=== PATIENT | female | born 1960 | race Two or more races ===

== ENCOUNTER 2025-10-01 11:52 | Inpatient (IN) | payer MEDICAID, OTHER ==
[~2025-10-01] VITALS: Ht 154.9 cm; Wt 64.5 kg
--- NOTE | 2025-10-01 12:07 | ECG ---
[facility] Test Date: 2025-10-01 Test Time: 12:05:25 Pat Name: UVALDO ESPAÑA Department: ER Room: Gender: F Mail Examiner: SOMMER : 1960 Requested By: BRANDIE LUNA Order Number: [id number] Reading MD: Measurements Intervals [place] Rate: 69 P: 67 AL: 153 QRS: 72 QRSD: 105 T: 62 QT: 420 QTc: 450 Interpretive Statements Sinus rhythm Consider left atrial enlargement Please click the below link to view image of tracing.
--- NOTE | 2025-10-01 12:38 | ED.PDOC ---
HPI Comments This is a 65 year old female presenting to the ED with chief complaint of chest pain. Patient reports that she has been experiencing left sided chest pressure since this morning with associated nausea. Patient relays that she has had similar pain in the past years ago. Patient denies any SOB, dizziness, vomiting, abdominal pain, or headache. Chief Complaint: Chest Pain Time Seen by MD: 12:33 Reviewed Notes: Nurses Notes, Medications, Allergies Allergies: Coded Allergies: NO KNOWN ALLERGIES (Unverified , 10/01/25) Information Source: Patient Mode of Arrival: Ambulatory Severity: Moderate Timing: Hours Duration: Since onset Prehospital treatment: None Location: Chest (L) Radiation: No Radiation Quality: Pressure Onset: At Rest Cardiac Risk Factors: Hyperlipidemia, HTN, Diabetes PE Risk Factors: None History of: Similar pain in past Past Medical History PAST MEDICAL HISTORY: DM, High Lipids, HTN Surgical History: Denies all surgeries TRIMMING OPERATOR History: No Pertinent TRIMMING OPERATOR History Family History Family History: Reviewed,noncontributory to illness Social History Smoker: Non-Smoker Alcohol: Denies ETOH Use Drugs: Denies Drug Use Lives In: Home Constitutional: denies: chills, diaphoresis, fatigue, fever, malaise, sweats, weakness, others EENTM: denies: blurred vision, double vision, ear bleeding, ear discharge, ear drainage, ear pain, ear ringing, eye pain, eye redness, hearing loss, mouth pain, mouth swelling, nasal discharge, nose bleeding, nose congestion, nose pain, photophobia, tearing, throat pain, throat swelling, voice changes, others Respiratory: denies: cough, hemoptysis, orthopnea, SOB at rest, shortness of breath, SOB with excertion, stridor, wheezing, others Cardiovascular: reports: chest pain; denies: dizzy spells, diaphoresis, Dyspnea on exertion, edema, irregular heart beat, left arm pain, lightheadedness, palpitations, PND, syncope, others Gastrointestinal: reports: nausea; denies: abdomen distended, abdominal pain, blood streaked bowels, constipated, diarrhea, dysphagia, difficulty swallowing, hematemesis, melena, poor appetite, poor fluid intake, rectal bleeding, rectal pain, vomiting, others Genitourinary: denies: abnormal vagina bleeding, burning, dyspareunia, dysuria, flank pain, frequency, hematuria, incontinence, pain, , vagina discharge, urgency, others Neurological: denies: dizziness, fainting, headache, left sided numbness, left sided weakness, numbness, paresthesia, pre-existing deficit, right sided numbness, right sided weakness, seizure, speech problems, tingling, tremors, weakness, others Musculoskeletal: denies: back pain, gout, joint pain, joint swelling, muscle pain, muscle stiffness, neck pain, others Integumetry: denies: bruises, change in color, change in hair/nails, dryness, laceration, lesions, lumps, rash, wounds, others Allergic/Immunocompromised: denies: Difficulty Healing, Frequent Infections, Hives, Itching, others Hematologic/Lymphatic: denies: anemia, blood clots, easy bleeding, easy bruising, swollen glands, others Endocrine: denies: excessive hunger, excessive sweating, excessive thirst, excessive urination, flushing, intolerance to cold, intolerance to heat, une xplained weight gain, unexplained weight loss, others Psychiatric: denies: anxiety, bipolar disorder, depression, hopeless, panic disorder, schizophrenia, sleepless, suicidal, others All Other Systems: Reviewed and Negative Physical Exam General Appearance: No Apparent Distress, Normal HEENT: Normal ENT Inspection, Pharynx Normal, TMs Normal Neck: Full Range of Motion, Non-Tender, Normal, Normal Inspection Respiratory: Chest Non-Tender, Lungs Clear, No Accessory Muscle Use, No Respiratory Distress, Normal Breath Sounds Cardiovascular: No Edema, No JVD, No Murmur, No Gallop, Normal Peripheral Pul ses, Regular Rate/Rhythm Breast Exam: Deferred Gastrointestinal: No Organomegaly, Non Tender, No Pulsatile Mass, Normal Bowel Sounds, Soft Genitalia: Deferred Pelvic: Deferred Rectal: Deferred Extremities: No calf tenderness, Normal capillary refill, Normal inspection, Normal range of motion, Non-tender, No pedal edema Musculoskeletal : Apperance: Normal Neurologic: Alert, manager metal II-XII nml as Tested, No Motor Deficits, Normal Affect, Normal Mood, No Sensory Deficits Cerebellar Function: Normal Reflexes: Normal Skin: Dry, Normal Color, Warm Lymphatic: No Adenopathy Was a procedure done? Was a procedure done?: No CP Differential Dx Differential Diagnosis: Electrolyte Disorder, Hypoxia, MAT, MN Differential Diagnosis: HTN Essential, HTN Accelerated Differential Diagnosis: Gastritis, Myocardial Infarction, Pericarditis X-Ray, Labs, Meds, VS Vital Signs Date Time Temp Pulse Resp B/P (MAP) Pulse Ox O2 Delivery O2 Flow Rate FiO2 10/01/25 12:05 69 10/01/25 12:00 98.1 81 18 132/72 98 98.1 Lab Test 10/01/25 14:17 10/01/25 12:29 Range/Units Troponin I High Sensitivity < 3 L < 3 L </=34 ng/L White Blood Count 7.0 4.4-10.8 10^3/uL Red Blood Count 4.60 4.0-5.20 10^6/uL Hemoglobin 9.5 L 12.2-16.2 g/dL Hematocrit 30.8 L 36.0-46.0 % Mean Corpuscular Volume 66.9 L 80.0-100.0 fL Mean Corpuscular Hemoglobin 20.7 L 28.0-32.0 pg Mean Corpuscular Hemoglobin Concent 31.0 L 32.0-36.0 g/dL Red Cell Distribution Width 17.2 H 11.8-14.3 % Platelet Count 235 140-450 10^3/uL Mean Platelet Volume 9.2 6.9-10.8 fL Neutrophils (%) (Auto) 77.0 37.0-80.0 % Lymphocytes (%) (Auto) 16.7 10.0-50.0 % Monocytes (%) (Auto) 5.7 0.0-12.0 % Eosinophils (%) (Auto) 0.1 0.0-7.0 % Basophils (%) (Auto) 0.5 0.0-2.0 % Neutrophils # (Auto) 5.4 1.6-8.6 10 ^3/uL Lymphocytes # (Auto) 1.2 0.4-5.4 10 ^3/uL Monocytes # (Auto) 0.4 0-1.3 10 ^3/uL Eosinophils # (Auto) 0 0-0.8 10 ^3/uL Basophils # (Auto) 0 0-0.2 10 ^3/uL Nucleated Red Blood Cells 0.0 % Platelet Estimate Adequate Hypochromasia (manual) Slight Microcytosis Moderate Sodium Level 142 136-145 mmol/L Potassium Level 4.4 3.5-5.1 mmol/L Chloride Level 105 98-107 mmol/L Carbon Dioxide Level 26 20-31 mmol/L Anion Gap 11 5-15 Blood Urea Nitrogen 14 9-23 mg/dL Creatinine 0.57 0.550-1.02 mg/dL Glomerular Filtration Rate Calc 101 >90 mL/min BUN/Creatinine Ratio 24.6 H 10.0-20.0 Serum Glucose 89 74-106 mg/dL Calcium Level 9.6 8.7-10.4 mg/dL Time of 1ST Reevaluation: 13:33 Reevaluation 1ST: Unchanged Patient Education/Counseling: Diagnosis, Treatment Family Education/Counseling: No Family Present SEPSIS Sepsis Screen Date sepsis recognized/suspect: Oct 01, 2025 Time Sepsis recognized/suspect: 1200 Recent Procedure: No On Antibiotic Therapy: No Respiratory Rate >20: No Heart Rate >90: No Temp<36 C (96.8 F) or >38.3 C: No SBP <90 or MAP <65 mmHG: No New Acute Mental Status Change: No Is the patient on CPAP, BIPAP,: No Physician Orders Troponin-I Hs (10/01/25 14:58) Electrocardigram (10/01/25 12:58) Electrocardigram (10/01/25 14:58) Chest Xray 1 View (10/01/25 12:11) Vital Signs Date Time Temp Pulse Resp B/P (MAP) Pulse Ox O2 Delivery O2 Flow Rate FiO2 10/01/25 12:05 69 10/01/25 12:00 98.1 81 18 132/72 98 98.1 Laboratory Tests Test 10/01/25 12:29 White Blood Count 7.0 10^3/uL (4.4-10.8) Departure 1 Departure Time of Disposition: 15:01 (Patient presented with chest pain that was concerning for possible STEMI, ACS, PE, Pneumonia, Muscle Strain, COPD, Dissection. Data: 1. I ordered and reviewed the result of at least 3 labs including a CBC, BMP, and Troponin. 2. I independently interpreted the following tests: EKG which shows sinus arrhythmia and Chest X-ray which shows benign chest.Risk:This patient has a high risk of morbidity due to further diagnostic testing or treatment and may suffer from an acute cardiac or respiratory disorder. Workup reveals concern for ACS and patient should be admitted for further workup and possible expert consultation. ) Impression: Primary Impression: Acute chest pain Disposition: ADMITTED INPATIENT Admit to: Tele Condition: Guarded Critical Care Note Critical Care Time?: Yes Critical care comment: Acute chest pain Authorized and Performed by: Brandie Zamora MD Total critical care time: Approximately 37 minutes Due to a high probability of clinically significant, life threatening deterioration, the patient required my highest level of preparedness to intervene emergently and I personally spent this critical care time directly and personally managing the patient. This critical care time included obtaining a history; examining the patient; pulse oximetry; ordering and review of studies; arranging urgent treatment with development of a management plan; evaluation of patient's response to treatment; frequent reassessment; and, discussions with other providers. This critical care time was performed to assess and manage the high probability of imminent, life-threatening deterioration that could result in multi-organ failure. It was exclusive of separately billable procedures and treating other patients and teaching time. Please see my other sections and the rest of the note for further information on patient assessment and treatment. Stability Stability form required: No Heart Score Heart Score: Heart Score Response (Comments) Value History N/A 0 EKG N/A 0 Age N/A 0 Risk Factors N/A 0 Troponin N/A 0 Total 0 I personally scribed for BRANDIE ZAMORA MD ([email or web address]) on 10/01/25 at 12:37. Electronically submitted by Abdifatah Parra ([email or web address]). BRANDIE ZAMORA MD Oct 01, 2025 12:37
--- NOTE | 2025-10-01 12:47 | DVH ---
CHEST RADIOGRAPH Indication: CP Technique: Single frontal view of the chest was obtained COMPARISON: None FINDINGS: Lines and Tubes: None Lungs: Clear Pleura: No effusion. No pneumothorax. Cardiomediastinal contours: Unremarkable Bones: Unremarkable IMPRESSION: No acute disease.
[2025-10-01 13:24] LABS: Hematocrit 30.8 % (36.0-46.0); Hemoglobin 9.5 g/dL (12.2-16.2); Mean Corpuscular Hemoglobin 20.7 pg (28.0-32.0); Mean Corpuscular Volume 66.9 fL (80.0-100.0); Nucleated Red Blood Cells % 0.0 %
[2025-10-01 13:29] LABS: Chloride 105 mmol/L (98-107); Potassium 4.4 mmol/L (3.5-5.1); Sodium 142 mmol/L (136-145)
[2025-10-01 13:30] LABS: Anion Gap 11 (5-15); Calcium 9.6 mg/dL (8.7-10.4); Carbon Dioxide 26 mmol/L (20-31)
[2025-10-01 13:35] LABS: BUN/Creatinine Ratio 24.6 (10.0-20.0); Blood Urea Nitrogen 14 mg/dL (9-23); Glucose 89 mg/dL (74-106)
[2025-10-01] MEDS ORDERED: ONDANSETRON HCL 4 MG/2 ML VIAL IV PRN (15:15)
[2025-10-01] MEDS ORDERED: MORPHINE SULFATE INJ 2 MG/ml SYRG IV PRN ×2 (15:15)
[2025-10-01] MEDS ORDERED: NITROGLYCERIN 0.4 MG SL TAB SL PRN ×2 (15:15→16:45)
[2025-10-01] MEDS ORDERED: DOCUSATE SOD 100 MG CAP PO PRN (15:15)
[2025-10-01] MEDS ORDERED: DEXTROSE (50%) 50ML SYRG IV PRN (15:30)
[2025-10-01] MEDS ORDERED: MORPHINE SULFATE 4 MG/ML SYR/VIAL IV PRN ×3 (15:30→18:15)
--- NOTE | 2025-10-01 15:46 | DVHHPRES ---
History of Present Illness Resident Creating Document: DEEDEE HART RESIDENT History of Present Illness Ms. Kristine Lugo, a 65-year-old female with cardiac risk factors including anxiety/depression, hypertension, hyperlipidemia, and diabetes presents to the ED with moderate left-sided chest pressure that began earlier this morning, accompanied by nausea. She reports experiencing similar chest pain years ago but denies shortness of breath, dizziness, vomiting, abdominal pain, or headache. The pain began at rest, has persisted for several hours, and does not radiate. She arrived ambulatory without prehospital treatment and has no known allergies. PMHx: DM, High Lipids, HTN, anxiety/depression, insomnia PSHx: Denies all surgeries TIE INSPECTOR History: No Pertinent TIE INSPECTOR History Family History:Reviewed,noncontributory to illness Social History: Lifetime nonsmoker, non ETOH or drug abuser, lives at home. Review of Systems Constitutional: No: Fever, Chills, Sweats, Weakness, Malaise, Other Eyes: No: Pain, Vision change, Conjunctivae inflammation, Eyelid inflammation, Other, Redness ENT: No: Ear pain, Ear discharge, Nose pain, Nose discharge, Nose congestion, Mouth pain, Mouth swelling, Throat pain, Throat swelling, Other Respiratory: No: Cough, Dry, Shortness of breath, SOB with excertion, Wheezing, Hemoptysis, Pleuritic Pain, Sputum, Wheezing, Other Cardiovascular: Chest Pain; No: Palpitations, Orthopnea, Paroxysmal Noc. Dyspnea, Edema, Lt Headedness, Other Gastrointestinal: Nausea; No: Vomiting, Abdominal Pain, Diarrhea, Constipation, Melena, Hematochezia, Other Genitourinary: No Dysuria, No Frequency, No Incontinence, No Hematuria, No Retention, No Other Musculoskeletal: No: other, neck pain, shoulder pain, arm pain, back pain, hand pain, leg pain, foot pain Skin: No: Rash, Lesions, Jaundice, Bruising, Other Neurological: No: Weakness, Numbness, Incoordination, Change in speech, Confusion, Seizures, Other Allergies: Coded Allergies: NO KNOWN ALLERGIES (Unverified , 10/01/25) Medications Current Medications Medications Dose Ordered Sig/Cyn Route Start Time Stop Time Status Last Admin Dose Admin Ondansetron HCl 4 mg Q4HP PRN IV 10/01/25 15:15 Docusate Sodium 100 mg BIDPRN PRN PO 10/01/25 15:15 Morphine Sulfate 2 mg Q4HPRN PRN IV 10/01/25 15:15 UNV Nitroglycerin 0.4 mg Q5MINP PRN SL 10/01/25 15:15 Morphine Sulfate 2 mg Q30M PRN IV 10/01/25 15:15 UNV Pantoprazole Sodium 40 mg DAILY IV 10/01/25 15:15 Morphine Sulfate 2 mg Q4HPRN PRN IV 10/01/25 15:30 Morphine Sulfate 2 mg Q30MIN PRN IV 10/01/25 15:30 Exam Vital Signs Vital Signs Date Time Temp Pulse Resp B/P (MAP) Pulse Ox O2 Delivery O2 Flow Rate FiO2 10/01/25 12:05 69 10/01/25 12:00 98.1 18 132/72 98 98.1 General Appearance: Alert, Oriented X3, Cooperative HEENT: Atraumatic, PERRLA, EOMI, Mucous membr. moist/pink, Other (b/l pallor scleral ) Respiratory: Clear to auscultation, Normal air movement Cardiovascular: Regular rate, Normal S1, Normal S2, No murmurs Abdominal: Normal bowel sounds, Soft, No hepatospenomegaly, No masses, Other (epigastric deep tenderness, rectal exam done, result pending. ) Extremities: No clubbing, No cyanosis, No edema, Normal pulses, No tenderness/swelling Skin: No rashes, No breakdown, No significant lesion Neuro: Normal gait, Normal speech, Strength at 5/5 X4 ext, Normal tone, Sensation intact, Cranial nerves 3-12 NL Psych/Mental Status: Mental status NL, Mood NL Labs/Xrays Labs Test 10/01/25 14:17 10/01/25 12:29 Range/Units Troponin I High Sensitivity < 3 L </=34 ng/L White Blood Count 7.0 4.4-10.8 10^3/uL Red Blood Count 4.60 4.0-5.20 10^6/uL Hemoglobin 9.5 L 12.2-16.2 g/dL Hematocrit 30.8 L 36.0-46.0 % Mean Corpuscular Volume 66.9 L 80.0-100.0 fL Mean Corpuscular Hemoglobin 20.7 L 28.0-32.0 pg Mean Corpuscular Hemoglobin Concent 31.0 L 32.0-36.0 g/dL Red Cell Distribution Width 17.2 H 11.8-14.3 % Platelet Count 235 140-450 10^3/uL Mean Platelet Volume 9.2 6.9-10.8 fL Neutrophils (%) (Auto) 77.0 37.0-80.0 % Lymphocytes (%) (Auto) 16.7 10.0-50.0 % Monocytes (%) (Auto) 5.7 0.0-12.0 % Eosinophils (%) (Auto) 0.1 0.0-7.0 % Basophils (%) (Auto) 0.5 0.0-2.0 % Neutrophils # (Auto) 5.4 1.6-8.6 10 ^3/uL Lymphocytes # (Auto) 1.2 0.4-5.4 10 ^3/uL Monocytes # (Auto) 0.4 0-1.3 10 ^3/uL Eosinophils # (Auto) 0 0-0.8 10 ^3/uL Basophils # (Auto) 0 0-0.2 10 ^3/uL Nucleated Red Blood Cells 0.0 % Platelet Estimate Adequate Hypochromasia (manual) Slight Microcytosis Moderate Sodium Level 142 136-145 mmol/L Potassium Level 4.4 3.5-5.1 mmol/L Chloride Level 105 98-107 mmol/L Carbon Dioxide Level 26 20-31 mmol/L Anion Gap 11 5-15 Blood Urea Nitrogen 14 9-23 mg/dL Creatinine 0.57 0.550-1.02 mg/dL Glomerular Filtration Rate Calc 101 >90 mL/min BUN/Creatinine Ratio 24.6 H 10.0-20.0 Serum Glucose 89 74-106 mg/dL Calcium Level 9.6 8.7-10.4 mg/dL SEPSIS Sepsis Screen Date sepsis recognized/suspect: Oct 01, 2025 Time Sepsis recognized/suspect: 1200 Recent Procedure: No On Antibiotic Therapy: No Respiratory Rate >20: No Heart Rate >90: No Temp<36 C (96.8 F) or >38.3 C: No SBP <90 or MAP <65 mmHG: No New Acute Mental Status Change: No Is the patient on CPAP, BIPAP,: No Physician Orders Troponin-I Hs (10/01/25 14:58) Electrocardigram (10/01/25 12:58) Electrocardigram (10/01/25 14:58) Chest Xray 1 View (10/01/25 12:11) Admit (10/01/25 15:13) Allergies (10/01/25 15:13) Code Status (10/01/25 15:13) Ondansetron Hcl (Zofran) (10/01/25 15:15) Docusate Sodium Capsule (Colace Capsule) (10/01/25 15:15) Fall Risk Precautions In Place QSHIFT (10/01/25 15:13) Complete Blood Count (10/02/25 04:00) Comprehensive Metabolic Panel (10/02/25 04:00) Echo 2d Mode Cardiac Dop (10/01/25 15:13) Condition: Fair (10/01/25 15:13) Sequential Compression Device (10/01/25 ) Nitroglycerin Sublingual (Ntrostat Subli (10/01/25 15:15) Oxygen By Nasal Cannula (10/01/25 15:13) Stat Ekg For Chest Pain (10/01/25 15:13) Notify Md Of Changes From Base (10/01/25 15:13) Repairer Art Objects For 24 Hours (10/01/25 15:13) Emergency Dysrhythmia Protocol (10/01/25 15:13) Rhythm Strips Once Every Shift (10/01/25 15:13) Thyroid Stimulating Hormone (10/01/25 15:15) B-Type Natriuretic Peptide (10/01/25 15:15) Erythrocyte Sedimentation Rate (10/01/25 15:15) C-Reactive Protein (10/01/25 15:15) Hepatic Panel (10/01/25 15:15) Pantoprazole (Protonix) (10/01/25 15:15) Covid19 Antigen Vy (10/01/25 ) Rapid Influenza A&B (10/01/25 15:15) Morphine Sulfate Injection (10/01/25 15:30) Lipase (10/01/25 15:20) Morphine Sulfate Injection (10/01/25 15:30) Urinalysis (10/01/25 15:20) Drug Screen (10/01/25 15:20) Iron Panel (10/01/25 15:20) Ferritin (10/01/25 15:20) Hemoglobin A1c (10/01/25 15:26) Sertraline Hcl (Zoloft) (10/02/25 10:00) Atorvastatin (Lipitor) (10/01/25 22:00) Trazodone Hcl (Desyrel) (10/01/25 22:00) Gabapentin Capsule (Neurontin Capsule) (10/02/25 10:00) Consistent Carb(Ccho)Diabetes (10/01/25 Dinner) Glucose Blood (Accu-Chek Comfort Curve T (10/01/25 17:00) Mild Sliding Scale (10/01/25 17:00) Dextrose 50% Syringe (10/01/25 15:30) Vital Signs Date Time Temp Pulse Resp B/P (MAP) Pulse Ox O2 Delivery O2 Flow Rate FiO2 10/01/25 12:05 69 10/01/25 12:00 98.1 81 18 132/72 98 98.1 Laboratory Tests Test 10/01/25 12:29 White Blood Count 7.0 10^3/uL (4.4-10.8) Assessment/Plan Assessment/Plan # Chest pain, to rule out ACS: CXR unremarkable, keep on tele, differential blood pressure, ESR CRP, echo, telemetry monitoring, Trend troponin, BNP, TSH, covid, influenza. GERD/PUD possible Maalox with ppi. # microcytic anemia: MCV today 66.9: Rule out GI bleed, iron panel, No known baseline, hemoglobin at present is 9.5, close follow up. unlikely acute GI bleed, hemodynamically stable. might need iron oral at discharge. # anxiety / depression: Sertraline 100 mg daily, continue. denies suicidal or homicidal ideation. # Dyslipidemia: Atorvastatin 40 mg daily to continue, check LFTs. # CAD/ high-risk of ASCVD: Aspirin 81 with atorvastatin, will hold aspirin and reevaluate the need for aspirin. # Insomnia: Trazodone 100 mg daily at bedtime, continue, counseling regarding Beer's criteria medication. # Hypovitaminosis D, daily vitamin-D 2000: continue # Type 2 diabetes mellitus: On oral metformin, check HbA1c,target 140-180, SSI in hospital. # Diabetic neuropathy: Gabapentin 100 mg daily to continue. PUD prophylaxis: Protonix 40mg oral DVT prophylaxis: SCDs Barriers to discharge: Medical diagnosis and management in progress. Patient lives with family. Independent for ADL. PT and SW consult as needed. PCP: Dr. Solange Tomas. Specialist Relevant To Admission: GI if high suspicion of GI/ PUD/ ulceration. Case discussed with Dr. Cortes. Code Status: Full Code. Discussion needed total 31 minutes bedside. Plan discussed with: Patient My Orders Orders - DEEDEE HART RESIDENT Procedure Category Date Status Time Admit ADMIT 10/01/25 Transmitted 15:13 Allergies SABRINA 10/01/25 In Process 15:13 Code Status CODE 10/01/25 Transmitted 15:13 Ondansetron Hcl PHA 10/01/25 In Process (Zofran) 15:15 Docusate Sodium PHA 10/01/25 In Process Capsule (Colace 15:15 Fall Risk Precautions SABRINA 10/01/[address] 15:13 Complete Blood Count LAB 10/02/25 Verified 04:00 Comprehensive LAB 10/02/25 Verified Metabolic Panel 04:00 Echo 2d Mode Cardiac US 10/01/25 Logged DOP 15:13 Condition: Fair SABRINA 10/01/25 In Process 15:13 Sequential SABRINA 10/01/25 In Process Compression Device Nitroglycerin PHA 10/01/25 In Process Sublingual (Ntrostat 15:15 Oxygen By Nasal RT 10/01/25 Transmitted Cannula 15:13 Stat Ekg For Chest [facility] 10/01/25 In Process Pain 15:13 Notify Md Of Changes [facility] 10/01/25 In Process From Base 15:13 Repairer Art Objects For [facility] 10/01/25 In Process 24 Hours 15:13 Emergency Dysrhythmia [facility] 10/01/25 In Process Protocol 15:13 Rhythm Strips Once [facility] 10/01/25 In Process Every Shift 15:13 Thyroid Stimulating LAB 10/01/25 Logged Hormone 15:15 B-Type Natriuretic LAB 10/01/25 Logged Peptide 15:15 Erythrocyte LAB 10/01/25 Logged Sedimentation Rate 15:15 C-Reactive Protein LAB 10/01/25 Logged 15:15 Hepatic Panel LAB 10/01/25 Logged 15:15 Pantoprazole PHA 10/01/25 In Process (Protonix) 15:15 Covid19 Antigen Vy LAB 10/01/25 Logged Rapid Influenza A&B LAB 10/01/25 Logged 15:15 Morphine Sulfate PHA 10/01/25 In Process Injection 15:30 Lipase LAB 10/01/25 Logged 15:20 Morphine Sulfate PHA 10/01/25 In Process Injection 15:30 Urinalysis LAB 10/01/25 Logged 15:20 Drug Screen LAB 10/01/25 Logged 15:20 Iron Panel LAB 10/01/25 Logged 15:20 Ferritin LAB 10/01/25 Logged 15:20 Hemoglobin A1c LAB 10/01/25 Logged 15:26 Sertraline Hcl PHA 10/02/25 Transmitted (Zoloft) 10:00 Atorvastatin (Lipitor) PHA 10/01/25 Transmitted 22:00 Trazodone Hcl PHA 10/01/25 Transmitted (Desyrel) 22:00 Gabapentin Capsule PHA 10/02/25 Transmitted (Neurontin Capsule) 10:00 Consistent DIET 10/01/25 Transmitted Carb(Ccho)Diabetes Dinner Glucose Blood PHA 10/01/25 Transmitted (Accu-Chek Comfort 17:00 Mild Sliding Scale PHA 10/01/25 Transmitted 17:00 Dextrose 50% Syringe PHA 10/01/25 Transmitted 15:30 Date of Service: Oct 01, 2025 Billing Provider: REYES CORTES MD Common Visit Codes: 22811-CVUFEBR INP/OBS CARE (HIGH) Secondary Visit Codes: 74995-[id number] CARE PLAN 30 MINUTES DEEEDE HART RESIDENT Oct 01, 2025 15:45
[2025-10-01] MEDS: PANTOPRAZOLE 40 MG/10 ML VIAL INJ IV SCH (15:55)
[2025-10-01] MEDS: MAALOX PLUS or MAALOX 30 ML PO ONE (15:56)
[2025-10-01 15:57] VITALS: BP 149/71; PULSE 67; RESP 15; TEMP 98.9; O2SAT 98
[2025-10-01 16:10] LABS: Alanine Aminotransferase 16.0 U/L (7-40); Albumin 4.5 g/dL (3.2-4.8); Alkaline Phosphatase 92.0 U/L (46-116); Bilirubin, Direct 0.1 mg/dL (<0.3); Bilirubin, Total 0.6 mg/dL (0.2-1.0); Total Protein 7.2 g/dL (5.7-8.2)
[2025-10-01] MEDS: InsuLIN REG 1unit/0.01ml Soln (100units/ml) SC SCH (17:00)
[2025-10-01 17:05] LABS: COVID19 ANTIGEN SOFIA FIA NEGATIVE (NEGATIVE)
[2025-10-01] MEDS: ACCU-CHEK COMFORT CURVE STRIP VI SCH (17:22)
[2025-10-01 17:30] LABS: Total Iron Binding Capacity 345.0 ug/dL (250-425)
[2025-10-01 18:23] LABS: Iron 23.0 ug/dL (50-170)
[2025-10-01] MEDS ORDERED: ATORVASTATIN 20 MG TAB PO SCH (22:00)
[2025-10-02] MEDS ORDERED: SERTRALINE HCL 50 MG TAB PO SCH (10:00)
[2025-10-02] MEDS ORDERED: GABAPENTIN 100 MG CAP PO ONE (10:00)
--- NOTE | 2025-10-02 11:46 | ECG ---
[facility] Test Date: 2025-10-01 Test Time: 14:12:16 Pat Name: UVALDO ESPAÑA Department: [facility] ED Room: [address] [place] [address] Gender: F [employer]: yue : 1960 Requested By: BRANDIE LUNA Order Number: [id number] Reading MD: Measurements Intervals [place] Rate: 71 P: 48 IA: 152 QRS: 42 QRSD: 99 T: 60 QT: 414 QTc: 450 Interpretive Statements Sinus rhythm Consider left atrial enlargement Minimal ST elevation, inferior leads Baseline wander in lead(s) I,III,aVR,aVL,V1,V2,V3,V4,V5 Please click the below link to view image of tracing.
== END 2025-10-01 22:33 | disposition left against medical advice (07) | DRG 198 ==
LOC: ER 11:52 → OVERFLOW 15:13 → UNDOADMIN 15:13 → OVERFLOW 16:42
PROVIDERS: ADMIT Student in an Organized Health Care Education/Training Program; ATTEND Emergency Medicine
DX: I24.9 Acute ischemic heart disease, unspecified (principal); D50.9 Iron deficiency anemia, unspecified; E11.40 Type 2 diabetes mellitus with diabetic neuropathy, unspecified; E55.9 Vitamin D deficiency, unspecified; E78.5 Hyperlipidemia, unspecified; F32.A Depression, unspecified; I10 Essential (primary) hypertension; I25.10 Atherosclerotic heart disease of native coronary artery without angina pectoris; Z20.822 Contact with and (suspected) exposure to COVID-19; F41.9 Anxiety disorder, unspecified; G47.00 Insomnia, unspecified; Z53.29 Procedure and treatment not carried out because of patient's decision for other reasons
CPT/HCPCS: 36415; 71045; 80048; 80076; 82728; 82962; 83036; 83540; 83550; 83690; 83880; 84443; 84484; 85025; 86141; 87426; 87804; 93005; 96365; 96375; G0378; J2470